=== PATIENT | male | born 1945 | race Caucasian/White ===

== ENCOUNTER → 2016-06-06 | Outpatient (REF) | payer OTHER ==
[~2016-06-06] MED LIST: CARV3.12 PO; LISI-538 PO; LISI20TA3 PO; SPIR25TA2 PO; [UNRECOGNIZED DRUG - OTHER]; [UNRECOGNIZED DRUG - OTHER] PO
[2016-06-06 17:56] LABS: ANION GAP 6 MEQ/L (8-16); BLOOD UREA NITROGEN 19 MG/DL (7-18); CALCIUM LEVEL 8.9 MG/DL (8.8-10.2); CARBON DIOXIDE LEVEL 36 MEQ/L (21-32); CHLORIDE LEVEL 102 MEQ/L (98-107); CREATININE FOR GFR 1.19 MG/DL (0.70-1.30); GLOMERULAR FILTRATION RATE > 60.0 (>49); GLUCOSE, FASTING 91 MG/DL (80-110); POTASSIUM SERUM 3.8 MEQ/L (3.5-5.1); SODIUM LEVEL 144 MEQ/L (136-145)
== END ==
LOC: M LABSMT 14:00
PROVIDERS: ATTEND Urology
DX: C61 Malignant neoplasm of prostate (principal)

== ENCOUNTER → 2016-06-08 | Outpatient (CLI) | payer OTHER ==
--- NOTE | 2016-06-08 18:31 | REP ---
Multi parametric prostate MRI without and with IV gadolinium: History: Prostate cancer. Comparisons: Comparison prostate transrectal ultrasound 12/01/2015. TECHNIQUE: Using a phased array surface coil, small field of view imaging was acquired using T2-weighted scans in the axial, coronal, and sagittal imaging planes. Small field of view diffusion-weighted sequences are acquired. Small field of view axial T1-weighted scans are acquired dynamically after the intravenous administration of 21.8 mL of ProHance. Prostate MRI findings: T1 and T2-weighted FLAIR and post-gadolinium enhanced images show no evidence of skeletal metastatic disease or pelvic adenopathy or mass. There is a left inguinal hernia containing a loop of sigmoid colon which shows diverticulosis. The central portion the prostate gland is enlarged. Prostate glandular dimensions are 6.1 x 4.6 x 4.4 cm. Calculated prostate glandular volume is 54.76 mL. There are two focal areas in the prostate identified on multiplanar metric prostate MR which are submitted for consideration of MR ultrasound guided fusion directed biopsy. Lesion #1 is in the right base anterior transition zone. This measures 2.1 x 1.4 x 1.6 cm with a calculated volume of 3.14 mL. It is characterized by a discrete homogeneous low T2 signal intensity mass in the central gland confined to the prostate with no reduction in ADC on diffusion weighted scans but a type 3 enhancement curve on dynamic postcontrast images. Clinically significant cancer is equivocal. Lesion #2 is in the right mid anterior peripheral zone measuring 1.4 x 1.1 x 1.0 cm, 1.02 mL. This has intermediate T2 signal intensity pattern of ill-defined focal area of low T2 signal. No reduction in ADC is seen. Type 3 enhancement curve is seen. Clinically significant cancer is equivocal. Impression: 1. Findings consistent with benign prostatic hypertrophy. Two areas of nodular contrast enhancement and low T2 signal intensity are identified in the prostate gland and are submitted for consideration of MR/ultrasound-guided prostate needle biopsy. 2. Left inguinal hernia contains a loop of sigmoid colon. Signed by Otis May MD 06/08/2016 08:22 P
== END ==
LOC: M RAD 12:20
PROVIDERS: ATTEND Urology
DX: C61 Malignant neoplasm of prostate (principal); K40.90 Unilateral inguinal hernia, without obstruction or gangrene, not specified as recurrent
CPT/HCPCS: 72197; A9576

== ENCOUNTER → 2016-07-01 | Outpatient (CLI) | payer OTHER ==
--- NOTE | 2016-07-01 15:48 | REP ---
Prostate sonography: History: Prostate CA. Sonographic findings: Trans rectal prostate sonography demonstrates unremarkable seminal vesicles. Prostate gland is heterogeneously enlarged with calcifications and cystic changes noted. Glandular dimensions are measured at 5.3 x 3.9 x 6.1 cm with a calculated glandular volume of 65.3 ml. Transrectal sonographic guidance provided to who performed trans rectal ultrasound guided needle biopsy procedure . Signed by Otis May MD 07/01/2016 10:51 A
== END | disposition home or self-care (01) ==
LOC: M SMT PRO 08:05
PROVIDERS: ATTEND Urology
DX: C61 Malignant neoplasm of prostate (principal); N41.8 Other inflammatory diseases of prostate; N42.89 Other specified disorders of prostate
CPT/HCPCS: 55700; 76872; 76942; 88344; G0416

== ENCOUNTER → 2017-01-04 | Outpatient (REF) | payer OTHER | LOC: M LABSMT 08:08 → M LRY 08:29 | PROVIDERS: ATTEND Urology | DX: C61 Malignant neoplasm of prostate (principal) ==

== ENCOUNTER → 2017-06-02 | Outpatient (REF) | payer OTHER | LOC: M SFHCLERA 09:38 | DX: C61 Malignant neoplasm of prostate (principal) ==

== ENCOUNTER → 2017-07-04 | Outpatient (CLI) | payer OTHER | LOC: M SMT PRO 08:09 | DX: C61 Malignant neoplasm of prostate (principal) | CPT/HCPCS: G0416 ==

== ENCOUNTER → 2018-01-04 | Outpatient (REF) | payer OTHER | LOC: M LABSMT 07:50 | DX: C61 Malignant neoplasm of prostate (principal) ==

== ENCOUNTER 2018-02-22 07:33 | Day surgery (SDC) | payer OTHER ==
[~2018-02-22 07:33] MED LIST changes: -CARV3.12 PO; +LIDOCAINE 2% INJ 100 MG/5 ML SDV (FOR ANES.) As Ordered; -LISI-538 PO; -LISI20TA3 PO; +PROPOFOL 200 MG/20 ML VIAL As Ordered; -SPIR25TA2 PO; -[UNRECOGNIZED DRUG - OTHER]; -[UNRECOGNIZED DRUG - OTHER] PO
[2018-02-22] MEDS ORDERED: PROPOFOL 200 MG/20 ML VIAL As Ordered (09:17)
== END 2018-02-22 10:03 | disposition home or self-care (01) ==
LOC: M OPP 07:33
DX: Z12.11 Encounter for screening for malignant neoplasm of colon (principal); Z86.010 Personal history of colon polyps; K57.30 Diverticulosis of large intestine without perforation or abscess without bleeding; I48.91 Unspecified atrial fibrillation; I10 Essential (primary) hypertension; R19.7 Diarrhea, unspecified; M19.90 Unspecified osteoarthritis, unspecified site; N40.1 Benign prostatic hyperplasia with lower urinary tract symptoms; E66.9 Obesity, unspecified; Z88.2 Allergy status to sulfonamides; Z79.01 Long term (current) use of anticoagulants; Z79.899 Other long term (current) drug therapy
CPT/HCPCS: G0105

== ENCOUNTER → 2018-04-06 | Outpatient (REF) | payer OTHER ==
[2018-04-06 16:41] LABS: PROSTATIC SPECIFIC AG MONITOR 4.6 NG/ML (< 4.0)
== END ==
LOC: M LABSMT 12:32
DX: C61 Malignant neoplasm of prostate (principal)

== ENCOUNTER → 2018-07-02 | Outpatient (REF) | payer OTHER ==
[~2018-07-02] MED LIST changes: +CARV3.12 PO; +ELIQ5TAB PO; +FINA5TAB2 PO; -LIDOCAINE 2% INJ 100 MG/5 ML SDV (FOR ANES.) As Ordered; +LISI-538 PO; +LISI20TA3 PO; -PROPOFOL 200 MG/20 ML VIAL As Ordered; +SPIR-10 PO; +[UNRECOGNIZED DRUG - OTHER]; +[UNRECOGNIZED DRUG - OTHER] PO
== END ==
LOC: M SFHCLERA 13:43
PROVIDERS: ATTEND Urology
DX: C61 Malignant neoplasm of prostate (principal)

== ENCOUNTER → 2018-07-24 | Outpatient (CLI) | payer OTHER ==
--- NOTE | 2018-07-25 05:13 | REP ---
Clinical: Prostate cancer. Technique: Transrectal ultrasound examination. Findings: Prostate gland is heterogeneous with parenchymal calcifications and measures 4.7 x 3.4 x 5.2 cm (44 ml). A left-sided nodule measures 1.0 x 0.8 cm. Biopsy was performed 16 passes with 18 gauge needle after the administration of local anesthetic without complication. Impression: 1. Heterogeneous prostate gland with left-sided nodule. 2. Biopsy performed without complication. Electronically Signed by Konrad Dimas MD 07/25/2018 05:05 A
== END ==
LOC: M SMT PRO 10:06
PROVIDERS: ATTEND Urology
DX: C61 Malignant neoplasm of prostate (principal)
CPT/HCPCS: 55700; 76872; 76942; G0416

== ENCOUNTER → 2018-07-27 | Outpatient (REF) | payer OTHER ==
[2018-07-27 20:54] LABS: BLOOD UREA NITROGEN 19 MG/DL (7-18); CARBON DIOXIDE LEVEL 31 MEQ/L (21-32); CHLORIDE LEVEL 103 MEQ/L (98-107); CREATININE FOR GFR 1.14 MG/DL (0.70-1.30); GLOMERULAR FILTRATION RATE > 60.0 (>42); GLUCOSE, FASTING 84 MG/DL (70-100); POTASSIUM SERUM 3.6 MEQ/L (3.5-5.1); SODIUM LEVEL 140 MEQ/L (136-145)
== END ==
LOC: M LABSMT 16:41
PROVIDERS: ATTEND Urology
DX: C61 Malignant neoplasm of prostate (principal)

== ENCOUNTER → 2018-08-06 | Outpatient (CLI) | payer OTHER ==
[~2018-08-06] MED LIST changes: +ISOVUE-370 76% 125ML VIAL (Q9967 PER ML) As Ordered ONE
--- NOTE | 2018-08-07 07:10 | REP ---
Clinical: History of prostate cancer. Technique: Axial contrast enhanced images from lung bases to the pubic symphysis using 100 ml Isovue 370 intravenous contrast material with precontrast and delayed images of the abdomen as well as coronal and sagittal re-formations. Comparison: 09/20/2010. Findings: Lung bases are clear. Visualized heart and pericardium normal. Fatty infiltration to the liver noted without focal hepatic lesion. The patient is status post cholecystectomy. Splenic calcifications consistent with prior granulomas disease. Kidneys demonstrate few scattered bilateral renal cysts measuring up to approximately 4 cm in the left renal pelvis. Adrenal glands are normal. The enteric system is without obstruction or acute inflammatory process. Left inguinal hernia contains nonobstructed loop of sigmoid colon. Right inguinal hernia contains mesenteric fat. Scattered colonic and sigmoid diverticulosis noted without acute diverticulitis. Normal terminal ileum and appendix are identified in the right lower quadrant. Pelvis demonstrates normal bladder. Prostate gland is mildly prominent with parenchymal calcifications noted. No ascites. No adenopathy. No mass lesion. Atherosclerotic changes to the aorta and vasculature without aneurysm. 2 cm fat containing periumbilical hernia identified. Musculoskeletal structures demonstrate degenerative changes without focal osseous abnormality. Impression: 1. Hepatic steatosis without focal hepatic lesions. 2. Few simple renal cysts. 3. Left inguinal hernia contains nonobstructed sigmoid colon. 4. Fat containing periumbilical and right inguinal hernias identified. 6. Diverticulosis without acute diverticulitis. 7. No ascites, significant adenopathy, focal inflammatory changes, or evidence for metastatic disease/mass lesion. Electronically Signed by Konrad Dimas MD 08/07/2018 07:02 A
== END ==
LOC: M RAD 15:13
PROVIDERS: ATTEND Urology
DX: C61 Malignant neoplasm of prostate (principal)
CPT/HCPCS: 74177; Q9967

== ENCOUNTER → 2018-08-16 | Outpatient (CLI) | payer OTHER ==
[~2018-08-16] MED LIST changes: -ISOVUE-370 76% 125ML VIAL (Q9967 PER ML) As Ordered ONE
--- NOTE | 2018-08-16 13:58 | REP ---
WHOLE BODY RADIONUCLIDE BONE SCAN: HISTORY: Prostate carcinoma. TECHNIQUE: 21.7 mCi technetium 99m MDP is injected and standard whole body bone scan imaging was acquired. No comparison study. SCINTIGRAPHIC FINDINGS: There is a normal distribution of skeletal tracer with uptake in bilateral kidneys and in the urinary bladder. There is an arthritic uptake pattern involving the knees, feet, and acromioclavicular joints bilaterally. There is no evidence to suggest skeletal metastatic disease. Study is otherwise unremarkable. IMPRESSION: No evidence of bony metastasis. Electronically Signed by Otis May MD 08/16/2018 02:27 P
== END ==
LOC: M RAD 09:17
PROVIDERS: ATTEND Urology
DX: C61 Malignant neoplasm of prostate (principal)
CPT/HCPCS: 78306; A9503

== ENCOUNTER → 2018-09-17 | Outpatient (CLI) | payer OTHER ==
--- NOTE | 2018-09-18 02:11 | REP ---
Clinical: Prostate cancer. Preoperative assessment . Comparison: 10/17/2008 . Technique: PA and lateral. Findings: The mediastinum and cardiac silhouette are normal. The lung humphrey are clear and without acute consolidation, effusion, or pneumothorax. The skeletal structures are intact with mild age related osteopenia and multilevel degenerative changes to the thoracic spine noted. Impression: 1. No acute cardiopulmonary process. Electronically Signed by Konrad Dimas MD 09/18/2018 02:03 A
== END ==
LOC: M LRY 09:52
PROVIDERS: ATTEND Urology
DX: C61 Malignant neoplasm of prostate (principal); Z01.818 Encounter for other preprocedural examination

== ENCOUNTER → 2018-09-17 | Outpatient (REF) | payer OTHER ==
[2018-09-17 11:31] LABS: HEMATOCRIT 49.2 % (42.0-52.0); HEMOGLOBIN 16.1 g/dl (13.5-17.5); MEAN CORPUSCULAR HEMOGLOBIN 29.1 pg (27.0-33.0); MEAN CORPUSCULAR HGB CONC 32.7 g/dl (32.0-36.5); PLATELET COUNT, AUTOMATED 179 10^3/uL (150-450); RED BLOOD COUNT 5.53 10^6/uL (4.30-6.10); WHITE BLOOD COUNT 5.3 10^3/uL (4.0-10.0)
[2018-09-17 11:59] LABS: BLOOD UREA NITROGEN 26 MG/DL (7-18); CALCIUM LEVEL 9.4 MG/DL (8.8-10.2); CARBON DIOXIDE LEVEL 28 MEQ/L (21-32); CHLORIDE LEVEL 105 MEQ/L (98-107); CREATININE FOR GFR 1.07 MG/DL (0.70-1.30); GLOMERULAR FILTRATION RATE > 60.0 (>42); GLUCOSE, FASTING 122 MG/DL (70-100); POTASSIUM SERUM 4.2 MEQ/L (3.5-5.1); SODIUM LEVEL 140 MEQ/L (136-145)
[2018-09-17 12:00] LABS: INR 1.04; PROTHROMBIN TIME 13.7 SECONDS (12.1-14.4)
[2018-09-17 12:01] LABS: PARTIAL THROMBOPLASTIN TIME 31.3 SECONDS (25.4-37.6)
== END ==
LOC: M LABSMT 09:51
PROVIDERS: ATTEND Urology
DX: C61 Malignant neoplasm of prostate (principal); Z01.818 Encounter for other preprocedural examination; N39.0 Urinary tract infection, site not specified

== ENCOUNTER 2018-09-25 05:47 | Inpatient (IN) | payer OTHER ==
[~2018-09-25] VITALS: Ht 175.3 cm; Wt 113.4 kg
[~2018-09-25 05:47] MED LIST changes: +METO1TAB32 PO; +MULTCAP PO
[2018-09-25] MEDS ORDERED: HEPARIN SOD (PORCINE) 5000 UNITS/ML VIAL SQ ONE (06:15)
[2018-09-25] MEDS ORDERED: ACETAMINOPHEN TAB 650MG DOSE (2X325MG) PO PRN (07:00)
[2018-09-25] MEDS ORDERED: MORPHINE 4 MG/ML 1ML VIAL/SYRINGE (J2270) IV PRN (07:00)
[2018-09-25] MEDS ORDERED: ONDANSETRON 4MG/2ML VIAL (J2405) IV PRN ×2 (07:00→16:00)
[2018-09-25] MEDS ORDERED: LR 1,000 ML IV SCH ×2 (08:15→16:00)
[2018-09-25] MEDS ORDERED: SCOPOLAMINE 1MG TRANSDERMAL PATCH TOP ONE (08:15)
[2018-09-25] MEDS ORDERED: LIDOCAINE 2% INJ 100 MG/5 ML SDV (FOR ANES.) As Ordered ONE (10:23)
[2018-09-25] MEDS ORDERED: PROPOFOL 200 MG/20 ML VIAL As Ordered ONE (10:23)
[2018-09-25] MEDS ORDERED: ROCURONIUM BROMIDE 50 MG/5 ML VIAL As Ordered ONE ×3 (10:23→13:54)
[2018-09-25] MEDS ORDERED: fentaNYL 100 MCG/2 ML INJECTION (J3010) As Ordered ONE ×2 (10:23→15:36)
[2018-09-25] MEDS ORDERED: MIDAZOLAM INJ 2 MG/2 ML VIAL (J2250) As Ordered ONE (10:23)
[2018-09-25] MEDS ORDERED: GLYCOPYRROLATE INJ 0.2 MG/ML 2 ML VIAL As Ordered ONE (11:03)
[2018-09-25] MEDS ORDERED: HYDROmorphone HCL 2 MG/ML 1ML VIAL (J1170) As Ordered ONE (11:23)
[2018-09-25] MEDS ORDERED: LIDOCAINE 1% SDV INJ 30 ML VIAL As Ordered ONE (11:35)
[2018-09-25] MEDS ORDERED: BUPIVACAINE HCL 0.25% 30 ML VIAL As Ordered ONE (11:35)
[2018-09-25] MEDS ORDERED: DESFLURANE 240 ML INHALANT As Ordered ONE (12:48)
[2018-09-25] MEDS ORDERED: dexameTHASONE 4 MG/ML 1ML VIAL (J1100) As Ordered ONE (13:56)
[2018-09-25] MEDS ORDERED: ONDANSETRON 4MG/2ML VIAL (J2405) As Ordered ONE (13:56)
[2018-09-25] MEDS ORDERED: SUGAMMADEX SODIUM 500 MG/5 ML VIAL (BRIDION) As Ordered ONE (14:11)
[2018-09-25] MEDS ORDERED: PHENYLephrine HCL 500 MCG/5 ML (100MCG/ML) SYRINGE (J2370) As Ordered ONE (14:59)
[2018-09-25] MEDS ORDERED: ACETAMINOPHEN 1000MG 100ML IV BTL (OFIRMEV) (J0131 PER 10MG) As Ordered ONE (15:33)
[2018-09-25] MEDS ORDERED: LEVALBUTEROL 1.25 MG/0.5 ML CONCENTRATE NEB As Ordered ONE (15:46)
--- NOTE | 2018-09-25 15:59 | ROOPDOC ---
[facility] Report Of Operation Report of Operation DATE OF PROCEDURE: 09/25/18 PREPROCEDURE DIAGNOSES: Prostate Cancer. POSTPROCEDURE DIAGNOSES: Prostate Cancer. PROCEDURE: Robotic-assisted Laparoscopic Radical Prostatectomy with Bilateral Pelvic Lymph Node Dissection, Laparoscopic Lysis of Adhesions. SURGEON: Shanell Mckeon MD TRANSMISSION REBUILDER: Karishma Simons NP ANESTHESIA: General. OPERATIVE INDICATIONS: This is a 73 year old male with high risk clinical T1c Fazal 4+4 prostate cancer, here today for the above procedure for treatment. DESCRIPTION OF PROCEDURE: The patient was brought to the operating room and general anesthesia was induced. Prophylactic antibiotics were infused. He was then placed in the supine position and prepped and draped in the usual sterile fashion. At this point, a Moreira catheter was inserted into the bladder and the balloon was filled with 10 mL of sterile water. We then made a midline incision just above the umbilicus for an 8 mm port. A Veress needle was utilized to achieve pneumoperitoneum. Next, an 8 mm port was inserted into the incision and subsequently a camera was inserted. There were no injuries from the Veress needle or initial trocar placement. Then three robotic ports were placed in the usual configuration in line just below the level of the umbilicus. A 12 mm assistant spa manager port was placed just lateral and at the level of the umbilicus. Once all the ports were placed, the robot was docked. Lysis of adhesions between the sigmoid colon and abdominal wall was then performed. Of note the patient also had a left inguinal hernia containing sigmoid colon. This was carefully taken down. After this was done, a 3-4cm mass was seen in the peritoneum. This was removed and sent for frozen section. Pathology on this mass was notable for fat necrosis. Next, the bladder was then released from the anterior abdominal wall using electrocautery. Once the bladder was dropped, the fat overlying the prostate was cleared using electrocautery. The superficial dorsal vein was controlled with electrocautery. The endopelvic fascia was opened on both sides and the dorsal venous complex was cleared. Next, a #0 Vicryl [id number] stitch was placed around the dorsal venous complex. Once that was done, the bladder was opened and dissected away from the prostate. At this point, the prostate was lifted up. At this point, the prostate was lifted up. The vasa deferentia were identified in the midline. They were controlled with electrocautery and then transected. The seminal vesicles were also dissected off bilaterally. The rectum was safely mobilized away from the prostate. At this point I ligated and transected bilateral prostatic pedicles using the Harmonic scalpel. The pedicles were carried towards the apex. After taking care of the pedicles and mobilizing the rectum off the prostate below, the prostate was only connected by the urethra. At this point, the dorsal venous complex was transected with electrocautery. The urethra was then opened and the catheter was withdrawn and the posterior urethra was transected, thus freeing the prostate. At this point, we checked for hemostasis and it did appear very good. Next, we performed bilateral pelvic lymph node dissection. This was done in a standard fashion. The limits of dissection were the iliac vein proximally, the obturator nerve distally, the pelvic sidewall laterally, and the bladder medially. All lymphatic tissue within these limits was removed. I performed the same procedure on both the right and left sides. Hemostasis was then obtained with a combination of bipolar electrocautery and Weck clips. The lymphatic packets were then placed in separate Endo Catch bags for future retrieval. Once hemostasis was confirmed, I then moved on to perform the vesicourethral anastomosis. The vesicourethral anastomosis was performed in running fashion using a Quill stitch. Once this was done, the final #20-Frisian Moreira catheter was placed. The balloon was filled with 15 mL of sterile water. Upon completion of the vesicourethral anastomosis, it was tested by filling the bladder with sterile water. The anastomosis appeared to be watertight. At this point, the prostate and seminal vesicles were placed in an Endo Catch bag for future retrieval. The robot was then undocked. A Leonor fascial closure device was utilized to place a #0 Vicryl suture between the fascia of the 12 mm assistant spa manager port. At this point, a Obb- Hernandez drain was brought in through the left robotic port skin site and the drain was positioned anterior to the bladder. The drain was secured to the skin with #2-0 Ethilon suture. Next, all the remaining ports were removed and there did not appear to be any bleeding from any of the port sites. The prostate, as well as the lymphatic packets were then extracted from the camera port site after the skin was extended. The fascia in this incision was then closed with a running #0 Vicryl stitch. The previously placed #0 Vicryl free ties through the assistant spa manager port were then tied down and all incisions were irrigated. Last, all of the incisions were closed with running subcuticular #4-0 Monocryl sutures. Local anesthesia was applied. Dermabond was then applied to the incisions. This marked the conclusion of the procedure. The patient was then awakened from anesthesia and transported to the recovery room in stable condition. ESTIMATED BLOOD LOSS: 100 mL. COMPLICATIONS: None. SPECIMENS: Prostate and seminal vesicles, right pelvic lymph nodes, left pelvic lymph nodes, peritoneal mass. PLAN: The patient will be admitted to the hospital postoperatively, and he will likely be discharged home within the next 1-2 days. SHANELL MCKEON MD September 25, 2018 15:59
[2018-09-25] MEDS ORDERED: ACETAMINOPHEN *IV* 1,000 MG IV ONE ×2 (16:00)
[2018-09-25] MEDS ORDERED: oxyCODONE 5MG TAB PO PRN (16:00)
[2018-09-25] MEDS ORDERED: PERCOCET 5MG/325MG TAB PO PRN (16:00)
[2018-09-25] MEDS ORDERED: MORPHINE 10 MG/ML 1ML VIAL (J2270) IV PRN (16:00)
[2018-09-25] MEDS ORDERED: ACETAMINOPHEN *IV* 1,000 MG IV PRN ×2 (16:00)
[2018-09-25 16:34] LABS: HEMATOCRIT 44.8 % (42.0-52.0); HEMOGLOBIN 14.9 g/dl (13.5-17.5); MEAN CORPUSCULAR HEMOGLOBIN 29.6 pg (27.0-33.0); MEAN CORPUSCULAR HGB CONC 33.3 g/dl (32.0-36.5); MEAN CORPUSCULAR VOLUME 88.9 fl (80.0-96.0); PLATELET COUNT, AUTOMATED 149 10^3/uL (150-450); RED BLOOD COUNT 5.04 10^6/uL (4.30-6.10); WHITE BLOOD COUNT 6.9 10^3/uL (4.0-10.0)
[2018-09-25] MEDS: fentaNYL 100 MCG/2 ML INJECTION (J3010) IV PRN ×4 (16:36→16:57)
[2018-09-25 16:42] LABS: CALCIUM LEVEL 8.6 MG/DL (8.8-10.2); CREATININE FOR GFR 1.57 MG/DL (0.70-1.30); GLOMERULAR FILTRATION RATE 46.6 (>42); POTASSIUM SERUM 4.2 MEQ/L (3.5-5.1)
[2018-09-25 17:02] VITALS: BP 165/85
[2018-09-25 17:32] VITALS: BP 176/98
[2018-09-25] MEDS: DOCUSATE SODIUM 100 MG CAP PO SCH ×2 (18:06→21:06)
[2018-09-25] MEDS: HEPARIN SOD (PORCINE) 5000 UNITS/ML VIAL SC SCH ×2 (18:06→22:26)
[2018-09-25] MEDS: NS 1,000 ML IV SCH ×2 (18:20→18:22)
[2018-09-25] MEDS: PERCOCET 5MG/325MG TAB PO PRN ×2 (18:20→22:27)
[2018-09-25] MEDS: ceFAZolin SOD 1 GM in D5W MINI-BAG PLUS 50 ML IV SCH (18:21)
[2018-09-25 18:30] VITALS: BP 165/84
[2018-09-25 19:30] VITALS: BP 167/88
[2018-09-25 20:30] VITALS: BP 131/72
[2018-09-25 21:30] VITALS: BP 140/75
[2018-09-26] MEDS: ceFAZolin SOD 1 GM in D5W MINI-BAG PLUS 50 ML IV SCH (01:03)
[2018-09-26] MEDS: NS 1,000 ML IV SCH ×2 (01:03→14:19)
[2018-09-26 02:00] VITALS: BP 159/77
[2018-09-26] MEDS: HEPARIN SOD (PORCINE) 5000 UNITS/ML VIAL SC SCH ×2 (05:41→14:53)
[2018-09-26] MEDS: PERCOCET 5MG/325MG TAB PO PRN ×3 (05:42→14:52)
[2018-09-26 06:00] VITALS: BP 139/76; O2SAT 98
[2018-09-26 06:33] LABS: HEMATOCRIT 42.5 % (42.0-52.0); MEAN CORPUSCULAR HEMOGLOBIN 28.9 pg (27.0-33.0); MEAN CORPUSCULAR HGB CONC 32.9 g/dl (32.0-36.5); MEAN CORPUSCULAR VOLUME 87.6 fl (80.0-96.0); PLATELET COUNT, AUTOMATED 148 10^3/uL (150-450); RED BLOOD COUNT 4.85 10^6/uL (4.30-6.10); WHITE BLOOD COUNT 7.4 10^3/uL (4.0-10.0)
[2018-09-26] MEDS ORDERED: LEVALBUTEROL 1.25 MG/0.5 ML CONCENTRATE NEB As Ordered ONE (07:00)
[2018-09-26 07:04] LABS: BLOOD UREA NITROGEN 17 MG/DL (7-18); CALCIUM LEVEL 8.4 MG/DL (8.8-10.2); CARBON DIOXIDE LEVEL 25 MEQ/L (21-32); CHLORIDE LEVEL 107 MEQ/L (98-107); CREATININE FOR GFR 1.17 MG/DL (0.70-1.30); GLOMERULAR FILTRATION RATE > 60.0 (>42); GLUCOSE, FASTING 113 MG/DL (70-100); POTASSIUM SERUM 3.9 MEQ/L (3.5-5.1); SODIUM LEVEL 140 MEQ/L (136-145)
--- NOTE | 2018-09-26 07:39 | IPNPDOC ---
Subjective Review oF Systems Chief Complaint The patient is a 73-year-old male admitted with a reason for visit of Prostate Cancer. Events since Last Encounter No acute events o/n. He notes minimal incisional pain. He notes mild left shoulder pain that is worsened w/ movement. This is a little better this morning. He denies chest pain or SOB. No n/v. Has not ambulated yet. No f/c/ns. Objective Physical Examination General Exam: Alert, Cooperative, No Acute Distress Chest Exam: Normal air movement Heart Exam: Positive: Rate Normal ABDOMEN EXAM: Soft, Tenderness (minimal), Other (incisions clean/dry/intact; PORFIRIO w/ serosanguinous output) Skin Exam: Nl turgor and temperature Neuro Exam: Normal Speech Psych Exam: Mental status NL, Mood NL Other physical findings catheter draining clear urine Vital Signs/I&O Vital Signs Date Time Temp Pulse Resp B/P (MAP) Pulse Ox O2 Delivery O2 Flow Rate FiO2 09/26/18 06:12 88 16 95 2.0 09/26/18 06:00 98.3 139/76 (97) 09/26/18 06:00 Nasal Cannula 09/25/18 16:57 80 I&O- Last 24 Hours up to 6 AM 09/26/18 06:00 Intake Total 5320 ml Output Total 2490 ml Balance 2830 ml Laboratory Data Labs 24H Laboratory Tests 2 09/25/18 16:02: Nucleated Red Blood Cells % (auto) 0.0, Anion Gap 8, Glomerular Filtration Rate 46.6, Blood Urea Nitrogen 23H, Creatinine 1.57H, Sodium Level 140, Potassium Level 4.2, Chloride Level 108H, Carbon Dioxide Level 24, Calcium Level 8.6L 09/26/18 05:59: Nucleated Red Blood Cells % (auto) 0.0, Anion Gap 8, Glomerular Filtration Rate > 60.0, Blood Urea Nitrogen 17, Creatinine 1.17, Sodium Level 140, Potassium Level 3.9, Chloride Level 107, Carbon Dioxide Level 25, Calcium Level 8.4L CBC/BMP Laboratory Tests 09/25/18 16:02 Red Blood Count 5.04, Mean Corpuscular Volume 88.9, Mean Corpuscular Hemoglobin 29.6, Mean Corpuscular Hemoglobin Concent 33.3, Red Cell Distribution Width 12.7, Calcium Level 8.6 L 09/26/18 05:59 Red Blood Count 4.85, Mean Corpuscular Volume 87.6, Mean Corpuscular Hemoglobin 28.9, Mean Corpuscular Hemoglobin Concent 32.9, Red Cell Distribution Width 12.7, Calcium Level 8.4 L A-FIB/CHADSVASC A-FIB History Current/History of A-Fib/PAF?: Yes Current Oral Anticoagulant The: No Treatment Treatment ordered: NONE Reason Anticoagulant not given: Recent/upcomin procedure Assessment/Plan Date Seen The patient was seen on 09/26/18. Patient Summary This is a 73 y/o M POD1 s/p RALP w/ BPLND. He is doing well this morning. He has musculoskeletal left shoulder pain that is improved this morning. Labs are stable. UOP is good. PORFIRIO output is minimal. Plan/VTE VTE Prophylaxis Ordered?: Yes VTE Exclusion Mechanical Proph: N/A:VTE Prophy Ordered VTE Exclusion Pharmacological: N/A:VTE Prophy Ordered Plan/Urinary Catheter Urinary Catheter: Other Catheter: (catheter will need to stay in for 7-10 days for healing of the vesicourethral anastomosis) Plan - d/c IVF - strict I/Os - cont home meds except blood thinner - percocet prn pain - SCDs when in bed - SQH - incentive spirometry - ambulate - CLD -> advance as tolerated - possible discharge home later today w/ catheter (will remove PORFIRIO drain prior to discharge) SHANELL MCKEON MD September 26, 2018 07:39
[2018-09-26] MEDS ORDERED: hydroCHLOROthiazide 25 MG TAB PO SCH (09:00)
[2018-09-26] MEDS ORDERED: METOPROLOL SUCC *XL* 25MG TAB (TopROL *XL*) PO SCH (09:00)
[2018-09-26] MEDS ORDERED: LISINOPRIL 20 MG TAB PO SCH (09:00)
[2018-09-26] MEDS: DOCUSATE SODIUM 100 MG CAP PO SCH (09:48)
[2018-09-26 09:49] VITALS: BP 139/76
[2018-09-26] MEDS ORDERED: PERC5TAB12 PO (15:29)
[2018-09-26] MEDS ORDERED: ACET1TAB55 PO (15:29)
[2018-09-26] MEDS ORDERED: DOCU100T8 PO (15:29)
[2018-09-26] MEDS ORDERED: OXYC1TAB23 PO (15:29)
--- NOTE | 2018-09-26 17:22 | DSES ---
DATE OF ADMISSION: 09/25/2018 DATE OF DISCHARGE: 09/26/2018 ADMISSION DIAGNOSIS: Prostate cancer. DISCHARGE DIAGNOSIS: Prostate cancer. ADMITTING PHYSICIAN: Justin Monteiro M.D. DISCHARGING PHYSICIAN: Justin Monteiro M.D. PROCEDURES PERFORMED: Robotic-assisted laparoscopic radical prostatectomy and bilateral pelvic lymph node dissection on 09/25/2018. HISTORY OF PRESENT ILLNESS: This is a 73-year-old male with prostate cancer who was admitted to the hospital after undergoing the above-listed procedure. HOSPITALIZATION COURSE: The patient's postoperative course was unremarkable. He was admitted to the hospital after undergoing the above-listed procedure. On postoperative day #1, he was ambulating well. His pain was well-controlled on oral pain medication. He was tolerating a regular diet. All of his blood work was within normal limits. He had excellent urine output through his catheter and had minimal output from his Bob-Hernandez drain. Therefore, his Bob-Hernandez drain was removed on postoperative day #1. Since he was doing well, he was deemed ready for discharge. He was discharged home on postoperative day #1 with his catheter in place, with a plan for him to follow up in clinic in approximately one week for catheter removal and to discuss pathology results.
== END 2018-09-26 16:00 | disposition home or self-care (01) | DRG 714 ==
LOC: M OR 05:47 → M MS5PR 16:55
PROVIDERS: ADMIT Urology; ATTEND Urology
PROC: 07BC4ZX Excision of Pelvis Lymphatic, Percutaneous Endoscopic Approach, Diagnostic (ICD-10-PCS; 2018-09-25)
PROC: 0VT08ZZ Resection of Prostate, Via Natural or Artificial Opening Endoscopic (ICD-10-PCS; principal; 2018-09-25 07:30)
DX: C61 Malignant neoplasm of prostate (principal); Z79.899 Other long term (current) drug therapy; I10 Essential (primary) hypertension; E78.5 Hyperlipidemia, unspecified; I48.91 Unspecified atrial fibrillation

== ENCOUNTER → 2018-10-22 | Outpatient (REF) | payer OTHER ==
[~2018-10-22] MED LIST changes: +ACET1TAB55 PO; +DOCU100T8 PO; +OXYC1TAB23 PO; +PERC5TAB12 PO
== END ==
LOC: M SFHCLERA 08:09
PROVIDERS: ATTEND Urology
DX: C61 Malignant neoplasm of prostate (principal)

== ENCOUNTER → 2019-02-28 | Outpatient (REF) | payer OTHER ==
[~2019-02-28] MED LIST changes: +LISI20TA20 PO; -LISI20TA3 PO
== END ==
LOC: M LABSMT 12:26
PROVIDERS: ATTEND Urology
DX: C61 Malignant neoplasm of prostate (principal)

== ENCOUNTER → 2019-06-10 | Outpatient (REF) | payer OTHER | LOC: M SFHCLERA 08:27 | PROVIDERS: ATTEND Urology | DX: C61 Malignant neoplasm of prostate (principal) ==

== ENCOUNTER → 2019-09-04 | Outpatient (REF) | payer OTHER | LOC: M SFHCLERA 08:06 | PROVIDERS: ATTEND Urology | DX: C61 Malignant neoplasm of prostate (principal) ==

== ENCOUNTER → 2020-03-19 | Outpatient (REF) | payer OTHER | LOC: M PLALAB 13:46 | PROVIDERS: ATTEND Urology | DX: C61 Malignant neoplasm of prostate (principal) ==

== ENCOUNTER → 2020-06-26 | Outpatient (REF) | payer OTHER ==
[~2020-06-26] MED LIST changes: -LISI-538 PO; +LISI20TA33 PO
== END ==
LOC: M PLALAB 11:20
PROVIDERS: ATTEND Urology
DX: C61 Malignant neoplasm of prostate (principal)

== ENCOUNTER → 2020-09-24 | Outpatient (REF) | payer OTHER | LOC: M PLALAB 15:02 | PROVIDERS: ATTEND Urology | DX: C61 Malignant neoplasm of prostate (principal) ==

== ENCOUNTER → 2020-12-23 | Outpatient (CLI) | payer OTHER | LOC: M PLALAB 14:44 | PROVIDERS: ATTEND Urology | DX: C61 Malignant neoplasm of prostate (principal) ==

== ENCOUNTER → 2021-03-22 | Outpatient (CLI) | payer OTHER | LOC: M PLALAB 12:19 | PROVIDERS: ATTEND Urology | DX: C61 Malignant neoplasm of prostate (principal) ==

== ENCOUNTER → 2021-07-02 | Outpatient (CLI) | payer OTHER ==
[~2021-07-02] MED LIST changes: -LISI20TA20 PO; +LISI20TA37 PO
== END ==
LOC: M PLALAB 13:45
PROVIDERS: ATTEND Urology
DX: C61 Malignant neoplasm of prostate (principal)

== ENCOUNTER → 2021-09-07 | Outpatient (CLI) | payer OTHER | LOC: M WUC 11:14 | PROVIDERS: ATTEND Physician Assistant | DX: M43.16 Spondylolisthesis, lumbar region (principal); M25.552 Pain in left hip ==

== ENCOUNTER → 2021-09-14 | Outpatient (CLI) | payer OTHER | LOC: M WUC 09:55 | PROVIDERS: ATTEND Urology | DX: C61 Malignant neoplasm of prostate (principal) ==

== ENCOUNTER → 2021-11-04 | Outpatient (CLI) | payer OTHER ==
[~2021-11-04] MED LIST changes: +CURC1POW2 PO
== END ==
LOC: M LABSMTC 09:28
PROVIDERS: ATTEND Anesthesiology
DX: Z01.818 Encounter for other preprocedural examination (principal); Z11.52 Encounter for screening for COVID-19

== ENCOUNTER 2021-11-09 06:04 | Day surgery (SDC) | payer OTHER ==
[~2021-11-09] VITALS: Ht 175.3 cm; Wt 112.9 kg
[2021-11-09] MEDS ORDERED: LR 1,000 ML IV SCH ×2 (06:25→11:00)
[2021-11-09] MEDS ORDERED: BUPIVACAINE/EPIN 0.25% 30 ML VIAL As Ordered ONE (07:08)
[2021-11-09] MEDS ORDERED: ceFAZolin SOD 2 GM in IV 1 EA IV ONE (07:30)
[2021-11-09] MEDS ORDERED: ROCURONIUM BROMIDE 50 MG/5 ML VIAL As Ordered ONE ×2 (08:22→08:23)
[2021-11-09] MEDS ORDERED: MIDAZOLAM INJ 2MG/2ML VIAL (J2250 PER 1MG) As Ordered ONE (08:22)
[2021-11-09] MEDS ORDERED: fentaNYL 250 MCG/5 ML INJECTION As Ordered ONE (08:22)
[2021-11-09] MEDS ORDERED: ACETAMINOPHEN 1000MG 100ML IV BTL (OFIRMEV) (J0131 PER 10MG) As Ordered ONE (08:22)
[2021-11-09] MEDS ORDERED: SUGAMMADEX SODIUM 500 MG/5 ML VIAL (BRIDION) As Ordered ONE (08:22)
[2021-11-09] MEDS ORDERED: METOCLOPRAMIDE INJ 10MG/2ML VIAL (J2765 PER 1) As Ordered ONE (08:22)
[2021-11-09] MEDS ORDERED: LIDOCAINE 2% 100MG/5ML SDV (FOR ANES.) As Ordered ONE (08:22)
[2021-11-09] MEDS ORDERED: ONDANSETRON 4MG/2ML VIAL As Ordered ONE (08:22)
[2021-11-09] MEDS ORDERED: DESFLURANE 240 ML INHALANT As Ordered ONE (08:22)
[2021-11-09] MEDS ORDERED: dexameTHASONE 4 MG/ML 1ML VIAL (J1100 PER 1MG) As Ordered ONE (08:22)
[2021-11-09] MEDS ORDERED: propofoL 200 MG/20 ML VIAL As Ordered ONE (08:22)
[2021-11-09] MEDS ORDERED: ETOMIDATE INJ 20MG/10ML VIAL As Ordered ONE (08:22)
[2021-11-09] MEDS ORDERED: BUPIVACAINE HCL 0.25% 30ML VIAL As Ordered ONE (09:44)
[2021-11-09] MEDS ORDERED: BUPIVACAINE LIPOSOME/PF 1.3% 20ML VIAL (13.3MG/ML)(EXPAREL) As Ordered ONE (09:45)
[2021-11-09] MEDS ORDERED: NORCO, ANEXSIA 5/325MG TABLET (HYDROcodone/ACETAMINOPHEN) PO PRN ×2 (11:00)
[2021-11-09] MEDS ORDERED: NS 1,000 ML IV SCH (11:00)
[2021-11-09] MEDS ORDERED: ONDANSETRON 4MG/2ML VIAL IV PRN (11:00)
[2021-11-09] MEDS ORDERED: fentaNYL 100 MCG/2 ML INJECTION IV PRN (11:00)
[2021-11-09] MEDS: MORPHINE 2 MG/ML 1ML VIAL IV PRN ×5 (11:18→12:15)
[2021-11-09] MEDS: oxyCODONE 5MG TAB PO PRN ×2 (11:19→11:49)
[2021-11-09 13:38] VITALS: BP 146/94
== END 2021-11-09 13:44 | disposition home or self-care (01) ==
LOC: M SDC 06:04
PROVIDERS: ATTEND Surgery
DX: K40.90 Unilateral inguinal hernia, without obstruction or gangrene, not specified as recurrent (principal); K43.2 Incisional hernia without obstruction or gangrene; M62.08 Separation of muscle (nontraumatic), other site; I10 Essential (primary) hypertension; I48.91 Unspecified atrial fibrillation; E78.5 Hyperlipidemia, unspecified; F41.9 Anxiety disorder, unspecified; M19.90 Unspecified osteoarthritis, unspecified site; Z85.46 Personal history of malignant neoplasm of prostate; Z79.899 Other long term (current) drug therapy; Z79.01 Long term (current) use of anticoagulants; Z88.1 Allergy status to other antibiotic agents; Z88.2 Allergy status to sulfonamides
CPT/HCPCS: 49650; 49654; C1781; C9290; J0131; J0690; J1100; J2250; J2270; J2405; J2765; J3010; S2900

== ENCOUNTER → 2021-12-24 | Outpatient (CLI) | payer OTHER | LOC: M WUC 11:17 | PROVIDERS: ATTEND Urology | DX: C61 Malignant neoplasm of prostate (principal) ==

== ENCOUNTER → 2022-01-20 | Outpatient (REF) | payer OTHER ==
[2022-01-20 18:05] LABS: BLOOD UREA NITROGEN 17 MG/DL (7-18); GLOMERULAR FILTRATION RATE > 60.0 (>42)
== END ==
LOC: M LABWUC 16:09
PROVIDERS: ATTEND Orthopaedic Surgery
DX: M16.12 Unilateral primary osteoarthritis, left hip (principal)

== ENCOUNTER → 2022-02-16 | Outpatient (CLI) | payer OTHER ==
[2022-02-16 16:47] LABS: BASO % 0.4 % (0.0-1.0); EOS # 0.1 10^3/uL (0.0-0.5); EOS % 2.6 % (0.0-3.0); HEMATOCRIT 44.5 % (42.0-52.0); HEMOGLOBIN 14.2 g/dl (13.5-17.5); LYMPH % 22.2 % (24.0-44.0); MEAN CORPUSCULAR HEMOGLOBIN 28.9 pg (27.0-33.0); MEAN CORPUSCULAR HGB CONC 31.9 g/dl (32.0-36.5); MEAN CORPUSCULAR VOLUME 90.4 fl (80.0-96.0); MONO # 0.4 10^3/uL (0.0-0.8); NEUTROPHILS # 3.1 10^3/uL (1.5-8.5); NEUTROPHILS % 65.4 % (36.0-66.0); PLATELET COUNT, AUTOMATED 131 10^3/uL (150-450); RED BLOOD COUNT 4.92 10^6/uL (4.30-6.10); WHITE BLOOD COUNT 4.7 10^3/uL (4.0-10.0)
[2022-02-16 19:25] LABS: ERYTHROCYTE SEDIMENTATION RATE 5 mm/hr (0-20)
== END ==
LOC: M WUC 11:15
PROVIDERS: ATTEND Orthopaedic Surgery
DX: M16.12 Unilateral primary osteoarthritis, left hip (principal)

== ENCOUNTER → 2022-04-02 | Outpatient (CLI) | payer OTHER | LOC: M LAB 12:15 | PROVIDERS: ATTEND Urology | DX: C61 Malignant neoplasm of prostate (principal) ==

== ENCOUNTER → 2022-04-20 | Outpatient (CLI) | payer OTHER | LOC: M ONCR 10:13 | PROVIDERS: ATTEND Radiology Radiation Oncology | DX: C61 Malignant neoplasm of prostate (principal); R97.21 Rising PSA following treatment for malignant neoplasm of prostate; I48.91 Unspecified atrial fibrillation; E78.5 Hyperlipidemia, unspecified; I10 Essential (primary) hypertension; Z79.01 Long term (current) use of anticoagulants; Z79.899 Other long term (current) drug therapy; Z80.0 Family history of malignant neoplasm of digestive organs; Z80.42 Family history of malignant neoplasm of prostate; Z82.49 Family history of ischemic heart disease and other diseases of the circulatory system; Z80.6 Family history of leukemia; Z83.3 Family history of diabetes mellitus; Z88.1 Allergy status to other antibiotic agents; Z88.2 Allergy status to sulfonamides; Z90.79 Acquired absence of other genital organ(s) ==

== ENCOUNTER 2022-05-20 10:32 | Outpatient (RCR) | payer OTHER ==
[~2022-05-20 10:32] MED LIST changes: +BICA50TA9 PO
== END 2022-05-21 ==
LOC: M ONCR 10:32
PROVIDERS: ATTEND General Practice
DX: C61 Malignant neoplasm of prostate (principal)

== ENCOUNTER → 2022-06-21 | Outpatient (RCR) | payer OTHER | LOC: M ONCR 05-24 10:33 | PROVIDERS: ATTEND General Practice | DX: C61 Malignant neoplasm of prostate (principal) ==

== ENCOUNTER 2022-07-05 10:29 | Outpatient (RCR) | payer OTHER | END 2022-07-19 | LOC: M ONCR 10:29 | PROVIDERS: ATTEND General Practice | DX: C61 Malignant neoplasm of prostate (principal) ==

== ENCOUNTER → 2022-08-18 | Outpatient (CLI) | payer OTHER ==
[2022-08-18 12:05] LABS: BASO % 0.6 % (0.0-1.0); EOS # 0.1 10^3/uL (0.0-0.5); EOS % 1.9 % (0.0-3.0); HEMATOCRIT 40.1 % (42.0-52.0); HEMOGLOBIN 12.9 g/dl (13.5-17.5); LYMPH # 0.4 10^3/uL (1.5-5.0); LYMPH % 12.1 % (24.0-44.0); MEAN CORPUSCULAR HEMOGLOBIN 30.3 pg (27.0-33.0); MEAN CORPUSCULAR HGB CONC 32.2 g/dl (32.0-36.5); MEAN CORPUSCULAR VOLUME 94.1 fl (80.0-96.0); MONO # 0.4 10^3/uL (0.0-0.8); MONO % 10.9 % (2.0-8.0); NEUTROPHILS # 2.4 10^3/uL (1.5-8.5); NEUTROPHILS % 74.2 % (36.0-66.0); PLATELET COUNT, AUTOMATED 121 10^3/uL (150-450); RED BLOOD COUNT 4.26 10^6/uL (4.30-6.10); WHITE BLOOD COUNT 3.2 10^3/uL (4.0-10.0)
[2022-08-18 12:40] LABS: ALBUMIN 3.8 G/DL (3.2-5.2); ALKALINE PHOSPHATASE 75 U/L (46-116); ALT/SGPT 47 U/L (7.0-40); AST/SGOT 28 U/L (<34); BILIRUBIN,TOTAL 1.2 MG/DL (0.3-1.2); BLOOD UREA NITROGEN 14 MG/DL (9-23); CALCIUM LEVEL 9.2 MG/DL (8.3-10.6); CARBON DIOXIDE LEVEL 31 MMOL/L (20-31); CHLORIDE LEVEL 105 MMOL/L (98-107); CHOLESTEROL LEVEL 175 MG/DL (<200); CHOLESTEROL RISK RATIO 4.64 (<5); CREATININE FOR GFR 0.91 MG/DL (0.70-1.30); GLOMERULAR FILTRATION RATE > 60.0 (>42); GLUCOSE, FASTING 92 MG/DL (74-106); HDL CHOLESTEROL 37.7 MG/DL (>40); LDL CHOLESTEROL 117.1 MG/DL (<100); NON-HDL-C 137.3 MG/DL; POTASSIUM SERUM 4.2 MMOL/L (3.5-5.1); SODIUM LEVEL 140 MMOL/L (136-145); THYROID STIMULATING HORMONE 0.866 uIU/ML (0.55-4.78); TOTAL PROTEIN 6.5 G/DL (5.7-8.2); TRIGLYCERIDES LEVEL 101 MG/DL (<150)
== END ==
LOC: M WUC 10:05
PROVIDERS: ATTEND Physician Assistant
DX: I10 Essential (primary) hypertension (principal); E78.5 Hyperlipidemia, unspecified; I48.20 Chronic atrial fibrillation, unspecified; Z79.01 Long term (current) use of anticoagulants

== ENCOUNTER → 2022-10-04 | Outpatient (CLI) | payer OTHER, MEDICARE ==
[~2022-10-04] MED LIST changes: +TURM500C PO; +VITMTA PO; +[UNRECOGNIZED DRUG - OTHER] PO; +[UNRECOGNIZED DRUG - OTHER] PO
== END ==
LOC: M ONCR 10:18
PROVIDERS: ATTEND Specialist
DX: C61 Malignant neoplasm of prostate (principal); Z88.1 Allergy status to other antibiotic agents; Z88.2 Allergy status to sulfonamides; Z79.01 Long term (current) use of anticoagulants; Z79.899 Other long term (current) drug therapy

== ENCOUNTER 2022-10-10 07:50 | Day surgery (SDC) | payer OTHER, MEDICARE ==
[~2022-10-10] VITALS: Ht 172.7 cm; Wt 113.9 kg
[~2022-10-10 07:50] MED LIST changes: +CYCLOPENTOLATE 1% OPHTH SOLN 2ML BTL OS SCH; +FLURBIPROFEN 0.03% OPHTH SOLN 2.5 ML OS SCH; +LIDOCAINE 1% SDV 5ML VIAL As Ordered ONE; +LR 1,000 ML IV SCH; +PHENYLEPHRINE 2.5% OPHTH SOL 2ML OS SCH; +TETRACAINE 0.5% OPHTH SOLN 4ML OS SCH
[2022-10-10] MEDS ORDERED: MIDAZOLAM INJ 2MG/2ML VIAL As Ordered ONE (11:04)
[2022-10-10] MEDS ORDERED: fentaNYL 100 MCG/2 ML INJECTION As Ordered ONE (11:04)
[2022-10-10 11:26] VITALS: BP 161/86
== END 2022-10-10 11:46 | disposition home or self-care (01) ==
LOC: M SDC 07:50
PROVIDERS: ATTEND Ophthalmology
DX: H25.12 Age-related nuclear cataract, left eye (principal); I48.91 Unspecified atrial fibrillation; I10 Essential (primary) hypertension; Z88.2 Allergy status to sulfonamides; Z79.899 Other long term (current) drug therapy
CPT/HCPCS: 66984; J2250; J3010; V2632

== ENCOUNTER → 2022-12-27 | Outpatient (CLI) | payer MEDICARE, OTHER ==
[~2022-12-27] MED LIST changes: -CYCLOPENTOLATE 1% OPHTH SOLN 2ML BTL OS SCH; -FLURBIPROFEN 0.03% OPHTH SOLN 2.5 ML OS SCH; -LIDOCAINE 1% SDV 5ML VIAL As Ordered ONE; -LR 1,000 ML IV SCH; -PHENYLEPHRINE 2.5% OPHTH SOL 2ML OS SCH; -TETRACAINE 0.5% OPHTH SOLN 4ML OS SCH
== END ==
LOC: M PLALAB 15:02
PROVIDERS: ATTEND Urology
DX: C61 Malignant neoplasm of prostate (principal)
CPT/HCPCS: 36415; 84153; G0463

== ENCOUNTER → 2023-09-27 | Outpatient (REF) | payer OTHER, MEDICARE ==
[~2023-09-27] MED LIST changes: +CIPR750T2 PO
== END ==
LOC: M LABWUC 16:25
PROVIDERS: ATTEND Urology
DX: C61 Malignant neoplasm of prostate (principal)

== ENCOUNTER → 2024-03-29 | Outpatient (CLI) | payer OTHER, MEDICARE ==
[~2024-03-29] MED LIST changes: +BICA50TA4 PO; -BICA50TA9 PO
== END ==
LOC: M PLALAB 15:08
PROVIDERS: ATTEND Urology
DX: C61 Malignant neoplasm of prostate (principal)

== ENCOUNTER → 2024-07-03 | Outpatient (CLI) | payer OTHER, MEDICARE ==
[~2024-07-03] MED LIST changes: +CENT1TAB2 PO
[2024-07-03 12:53] LABS: APPEARANCE, URINE CLEAR (CLEAR); BACTERIA, URINE AUTO NEGATIVE (NEGATIVE); BILIRUBIN, URINE AUTO NEGATIVE (NEGATIVE); BLOOD, URINE BLOOD 3+ (NEGATIVE); COLOR, URINE YELLOW (YELLOW); GLUCOSE, URINE (UA) AUTO NEGATIVE (NEGATIVE); KETONE, URINE AUTO NEGATIVE (NEGATIVE); LEUKOCYTE ESTERASE, URINE AUTO NEGATIVE (NEGATIVE); MUCUS, URINE SMALL (NEGATIVE); NITRITE, URINE AUTO NEGATIVE (NEGATIVE); PROTEIN, URINE AUTO 1+ mg/dL (NEGATIVE); RBC, URINE AUTO 82 /HPF (0-3); SPECIFIC GRAVITY URINE AUTO 1.018 (1.002-1.035); SQUAMOUS EPITHELIAL CELL UR AU 1 /HPF (0-6); UROBILINOGEN, URINE AUTO 0.2 mg/dL (0.0-2.0); WBC, URINE AUTO 1 /HPF (0-3)
== END ==
LOC: M WUC 10:04
PROVIDERS: ATTEND Urology
DX: N39.0 Urinary tract infection, site not specified (principal); N20.0 Calculus of kidney

== ENCOUNTER → 2024-07-03 | Outpatient (CLI) | payer OTHER, MEDICARE ==
[2024-07-03 12:56] LABS: BASO % 0.5 % (0.0-1.0); EOS # 0.1 10^3/uL (0.0-0.5); EOS % 1.5 % (0.0-3.0); HEMATOCRIT 45.4 % (42.0-52.0); HEMOGLOBIN 14.5 g/dl (13.5-17.5); LYMPH # 0.7 10^3/uL (1.5-5.0); LYMPH % 17.9 % (24.0-44.0); MEAN CORPUSCULAR HEMOGLOBIN 29.3 pg (27.0-33.0); MEAN CORPUSCULAR HGB CONC 31.9 g/dl (32.0-36.5); MEAN CORPUSCULAR VOLUME 91.7 fl (80.0-96.0); MONO # 0.4 10^3/uL (0.0-0.8); MONO % 10.2 % (2.0-8.0); NEUTROPHILS # 2.7 10^3/uL (1.5-8.5); NEUTROPHILS % 69.6 % (36.0-66.0); PLATELET COUNT, AUTOMATED 126 10^3/uL (150-450); RED BLOOD COUNT 4.95 10^6/uL (4.30-6.10)
[2024-07-03 13:34] LABS: ALKALINE PHOSPHATASE 100 U/L (40-129); ALT/SGPT 50 U/L (7.0-40); AST/SGOT 18 U/L (<34); BILIRUBIN,TOTAL 0.8 MG/DL (0.3-1.2); BLOOD UREA NITROGEN 21 MG/DL (9-23); CALCIUM LEVEL 9.8 MG/DL (8.3-10.6); CARBON DIOXIDE LEVEL 32 MMOL/L (20-31); CHLORIDE LEVEL 105 MMOL/L (98-107); GLOMERULAR FILTRATION RATE > 60.0 (>42); GLUCOSE, FASTING 103 MG/DL (74-106); POTASSIUM SERUM 4.3 MMOL/L (3.5-5.1); SODIUM LEVEL 142 MMOL/L (136-145); TOTAL PROTEIN 7.4 G/DL (5.7-8.2)
[2024-07-04 10:19] LABS: WHITE BLOOD COUNT 3.9 10^3/uL (4.0-10.0)
== END ==
LOC: M WUC 10:06
PROVIDERS: ATTEND Internal Medicine
DX: Z01.818 Encounter for other preprocedural examination (principal); N20.0 Calculus of kidney

== ENCOUNTER 2024-07-11 06:34 | Day surgery (SDC) | payer OTHER, MEDICARE ==
[~2024-07-11] VITALS: Ht 175.3 cm; Wt 108.9 kg
[~2024-07-11 06:34] MED LIST changes: +LIDOCAINE 2% 100MG/5ML SDV (FOR ANES.) As Ordered ONE; +propofoL 200 MG/20 ML VIAL As Ordered ONE
[2024-07-11] MEDS: ceFAZolin SOD 2 GM in IV 1 EA IV ONE (08:46)
[2024-07-11] MEDS: LR 1,000 ML IV SCH (08:46)
[2024-07-11] MEDS ORDERED: ACETAMINOPHEN 1000MG/100ML IV BAG As Ordered ONE (09:02)
[2024-07-11] MEDS: LIDOCAINE 2% JELLY 6ML SYRINGE As Ordered ONE (09:09)
[2024-07-11] MEDS ORDERED: ONDANSETRON 4MG 2ML VIAL As Ordered ONE (09:15)
[2024-07-11] MEDS ORDERED: OXYC1TAB23 PO (09:29)
[2024-07-11] MEDS ORDERED: FLOM0.4C39 PO (09:29)
[2024-07-11 10:23] VITALS: BP 136/77; TEMP 98.7; O2SAT 97
== END 2024-07-11 10:26 | disposition home or self-care (01) ==
LOC: M SDC 06:34
PROVIDERS: ATTEND Urology
DX: N20.0 Calculus of kidney (principal); N39.3 Stress incontinence (female) (male); Z85.46 Personal history of malignant neoplasm of prostate; Z79.01 Long term (current) use of anticoagulants; Z79.899 Other long term (current) drug therapy; Z90.79 Acquired absence of other genital organ(s)
CPT/HCPCS: 50590; 74018; J0131; J0690; J1100; J2405

== ENCOUNTER → 2024-07-23 | Outpatient (CLI) | payer OTHER, MEDICARE ==
[~2024-07-23] MED LIST changes: +FLOM0.4C39 PO; -LIDOCAINE 2% 100MG/5ML SDV (FOR ANES.) As Ordered ONE; -propofoL 200 MG/20 ML VIAL As Ordered ONE
== END ==
LOC: M WUC 13:48
PROVIDERS: ATTEND Urology
DX: N20.0 Calculus of kidney (principal)

== ENCOUNTER → 2024-07-29 | Outpatient (REF) | payer MEDICARE, OTHER | LOC: M SMT 12:50 | PROVIDERS: ATTEND Urology | DX: N20.0 Calculus of kidney (principal) ==

== ENCOUNTER → 2024-08-06 | Outpatient (CLI) | payer OTHER ==
[2024-08-06 16:02] LABS: HEMATOCRIT 42.1 % (42.0-52.0); HEMOGLOBIN 13.4 g/dl (13.5-17.5); MEAN CORPUSCULAR HEMOGLOBIN 29.2 pg (27.0-33.0); MEAN CORPUSCULAR HGB CONC 31.8 g/dl (32.0-36.5); MEAN CORPUSCULAR VOLUME 91.7 fl (80.0-96.0); RED BLOOD COUNT 4.59 10^6/uL (4.30-6.10)
[2024-08-06 16:35] LABS: BLOOD UREA NITROGEN 24 MG/DL (9-23); CALCIUM LEVEL 9.3 MG/DL (8.3-10.6); CARBON DIOXIDE LEVEL 31 MMOL/L (20-31); CHLORIDE LEVEL 104 MMOL/L (98-107); CREATININE FOR GFR 1.11 MG/DL (0.70-1.30); GLOMERULAR FILTRATION RATE > 60.0 (>42); GLUCOSE, FASTING 87 MG/DL (74-106); POTASSIUM SERUM 4.3 MMOL/L (3.5-5.1); SODIUM LEVEL 143 MMOL/L (136-145)
[2024-08-06 16:49] LABS: PLATELET COUNT, AUTOMATED 88 10^3/uL (150-450)
== END ==
LOC: M WUC 11:46
PROVIDERS: ATTEND Urology
DX: Z01.818 Encounter for other preprocedural examination (principal); N32.89 Other specified disorders of bladder

== ENCOUNTER → 2024-08-13 | Outpatient (CLI) | payer OTHER ==
[2024-08-13 14:57] LABS: HEMOGLOBIN 14.1 g/dl (13.5-17.5); MEAN CORPUSCULAR HEMOGLOBIN 29.4 pg (27.0-33.0); MEAN CORPUSCULAR VOLUME 91.7 fl (80.0-96.0); WHITE BLOOD COUNT 2.6 10^3/uL (4.0-10.0)
[2024-08-13 14:59] LABS: PLATELET COUNT, AUTOMATED 94 10^3/uL (150-450)
[2024-08-13 15:23] LABS: BLOOD UREA NITROGEN 22 MG/DL (9-23); CALCIUM LEVEL 9.7 MG/DL (8.3-10.6); CARBON DIOXIDE LEVEL 32 MMOL/L (20-31); CHLORIDE LEVEL 103 MMOL/L (98-107); CREATININE FOR GFR 1.09 MG/DL (0.70-1.30); GLOMERULAR FILTRATION RATE > 60.0 (>42); GLUCOSE, FASTING 86 MG/DL (74-106); POTASSIUM SERUM 3.8 MMOL/L (3.5-5.1); SODIUM LEVEL 141 MMOL/L (136-145)
== END ==
LOC: M WUC 12:33
PROVIDERS: ATTEND Urology
DX: Z01.818 Encounter for other preprocedural examination (principal); N32.89 Other specified disorders of bladder; N39.0 Urinary tract infection, site not specified

== ENCOUNTER → 2024-08-16 | Outpatient (REF) | payer OTHER ==
[2024-08-16 18:15] LABS: APPEARANCE, URINE HAZY (CLEAR); BACTERIA, URINE AUTO NEGATIVE (NEGATIVE); BILIRUBIN, URINE AUTO NEGATIVE (NEGATIVE); BLOOD, URINE BLOOD 1+ (NEGATIVE); COLOR, URINE YELLOW (YELLOW); GLUCOSE, URINE (UA) AUTO NEGATIVE (NEGATIVE); KETONE, URINE AUTO NEGATIVE (NEGATIVE); LEUKOCYTE ESTERASE, URINE AUTO NEGATIVE (NEGATIVE); MUCUS, URINE SMALL (NEGATIVE); NITRITE, URINE AUTO NEGATIVE (NEGATIVE); PROTEIN, URINE AUTO NEGATIVE (NEGATIVE); RBC, URINE AUTO 10 /HPF (0-3); SPECIFIC GRAVITY URINE AUTO 1.017 (1.002-1.035); SQUAMOUS EPITHELIAL CELL UR AU 0 /HPF (0-6); UROBILINOGEN, URINE AUTO 0.2 mg/dL (0.0-2.0); WBC, URINE AUTO 1 /HPF (0-3)
== END ==
LOC: M SMT 17:48
PROVIDERS: ATTEND Urology
DX: Z01.818 Encounter for other preprocedural examination (principal); N39.0 Urinary tract infection, site not specified

== ENCOUNTER 2024-08-21 06:34 | Day surgery (SDC) | payer OTHER, MEDICARE ==
[~2024-08-21] VITALS: Ht 175.3 cm; Wt 107.8 kg
[2024-08-21] MEDS ORDERED: ROCURONIUM BROMIDE 50MG/5ML VIAL As Ordered ONE (08:13)
[2024-08-21] MEDS ORDERED: ONDANSETRON 4MG 2ML VIAL As Ordered ONE (08:13)
[2024-08-21] MEDS ORDERED: LIDOCAINE 2% 100MG/5ML SDV (FOR ANES.) As Ordered ONE (08:13)
[2024-08-21] MEDS ORDERED: SUGAMMADEX SODIUM 500 MG/5 ML VIAL (BRIDION) As Ordered ONE (08:13)
[2024-08-21] MEDS ORDERED: propofoL 200 MG/20 ML VIAL As Ordered ONE (08:14)
[2024-08-21] MEDS ORDERED: fentaNYL 100 MCG/2 ML INJECTION As Ordered ONE (08:17)
[2024-08-21] MEDS: ceFAZolin SOD 2 GM IV ONCE IV ONE (08:41)
[2024-08-21] MEDS ORDERED: ACETAMINOPHEN 1000MG/100ML IV BAG As Ordered ONE (08:43)
[2024-08-21] MEDS ORDERED: LR 1,000 ML IV SCH (09:20)
[2024-08-21] MEDS ORDERED: ONDANSETRON 4MG 2ML VIAL IV PRN (09:20)
[2024-08-21] MEDS ORDERED: fentaNYL 100 MCG/2 ML INJECTION IV PRN (09:20)
[2024-08-21 10:24] VITALS: BP 132/71; TEMP 97.8; O2SAT 100
== END 2024-08-21 10:50 | disposition home or self-care (01) ==
LOC: M SDC 06:34
PROVIDERS: ATTEND Urology
DX: N30.40 Irradiation cystitis without hematuria (principal); Z85.46 Personal history of malignant neoplasm of prostate; Z90.79 Acquired absence of other genital organ(s); I48.0 Paroxysmal atrial fibrillation; I10 Essential (primary) hypertension; D69.6 Thrombocytopenia, unspecified; Z79.01 Long term (current) use of anticoagulants; Z79.899 Other long term (current) drug therapy; Z92.3 Personal history of irradiation; Z92.21 Personal history of antineoplastic chemotherapy; Z90.89 Acquired absence of other organs; Z88.2 Allergy status to sulfonamides; Z88.1 Allergy status to other antibiotic agents; Z87.442 Personal history of urinary calculi
CPT/HCPCS: 52000; J0131; J0690; J1100; J2405; J3010

== ENCOUNTER → 2024-10-10 | Outpatient (REF) | payer OTHER, MEDICARE ==
[~2024-10-10] MED LIST changes: -FLOM0.4C39 PO; +TAMS-18 PO
[2024-10-10 12:23] LABS: APPEARANCE, URINE CLEAR (CLEAR); BACTERIA, URINE AUTO NEGATIVE (NEGATIVE); BILIRUBIN, URINE AUTO NEGATIVE (NEGATIVE); BLOOD, URINE BLOOD 1+ (NEGATIVE); COLOR, URINE YELLOW (YELLOW); GLUCOSE, URINE (UA) AUTO NEGATIVE (NEGATIVE); KETONE, URINE AUTO NEGATIVE (NEGATIVE); LEUKOCYTE ESTERASE, URINE AUTO NEGATIVE (NEGATIVE); MUCUS, URINE SMALL (NEGATIVE); NITRITE, URINE AUTO NEGATIVE (NEGATIVE); PROTEIN, URINE AUTO NEGATIVE (NEGATIVE); RBC, URINE AUTO 1 /HPF (0-3); SQUAMOUS EPITHELIAL CELL UR AU 1 /HPF (0-6); UROBILINOGEN, URINE AUTO 0.2 mg/dL (0.0-2.0); WBC, URINE AUTO 2 /HPF (0-3)
== END ==
LOC: M SMT 12:02
PROVIDERS: ATTEND Urology
DX: N39.0 Urinary tract infection, site not specified (principal)

== ENCOUNTER → 2025-04-09 | Outpatient (CLI) | payer MEDICARE, OTHER ==
[~2025-04-09] MED LIST changes: +FLUO0.0216 TOP
== END ==
LOC: M ONCR 09:25
PROVIDERS: ATTEND General Practice
DX: C61 Malignant neoplasm of prostate (principal); R32 Unspecified urinary incontinence; Z92.3 Personal history of irradiation; Z88.1 Allergy status to other antibiotic agents; Z88.2 Allergy status to sulfonamides; Z79.01 Long term (current) use of anticoagulants; Z79.899 Other long term (current) drug therapy